=== PATIENT | female | born 1955 | race Caucasian/White ===

== ENCOUNTER → 2019-09-23 09:14 | Outpatient (CLI) | payer MEDICARE, SELFPAY ==
[2019-09-23 10:39] LABS: Add Manual Diff / Slide Review NO; Basophils Absolute Auto 100 /uL (0-100); Basophils Percent Auto 1.4 % (0-2); Eosinophils Absolute Auto 300 /uL (0-450); Eosinophils Percent Auto 6.8 % (2-4); Hematocrit 40.4 % (36-46); Hemoglobin 13.9 g/dL (12.0-16.0); Lymphocytes Absolute Auto 2100 /uL (1100-4500); Lymphocytes Percent Auto 43.5 % (25-40); Mean Corpuscular HGB Conc 34.5 % (30-36); Mean Corpuscular Hemoglobin 32.5 PG (26-34); Mean Corpuscular Volume 94.2 fL (80-100); Monocytes Absolute Auto 500 /uL (0-900); Monocytes Percent Auto 9.9 % (3-14); Neutrophils Absolute Auto 1900 /uL (1500-7000); Neutrophils Percent Auto 38.4 % (50-75); Platelet Count 263 X10^3/uL (150-400); Red Blood Cell Count 4.29 X10^6/uL (4.0-5.2); Red Cell Distribution Width 13.1 % (11.6-14.8); White Blood Cell Count 4.9 X10^3/uL (4.5-11.0)
[2019-09-23 11:13] LABS: BUN Creatinine Ratio 24.3 (6-22); Blood Urea Nitrogen 17 mg/dL (7-17); Carbon Dioxide 30 mmol/L (22-32); Chloride 106 mmol/L (98-107); Cholesterol 265 mg/dL (140-199); Estimated Glomerular Filt Rate > 60.0 mL/min (>60); Glucose 106 mg/dL (80-110); HDL Cholesterol 80 mg/dL (40-60); HEMOLYSIS < 15 (0-50); LDL Cholesterol Calculated 162 mg/dL (<100); Potassium 5.3 mmol/L (3.4-5.1); Sodium 141 mmol/L (137-145); Triglycerides 113 mg/dL (35-150)
== END ==
PROVIDERS: Family Provider Family Medicine; PCP Family Medicine; Visit Provider Internal Medicine Cardiovascular Disease
DX: I10 Essential (primary) hypertension (principal)
CPT/HCPCS: 36415; 80048; 80061; 85025

== ENCOUNTER → 2019-10-01 08:54 | Outpatient (CLI) | payer MEDICARE, SELFPAY ==
--- NOTE | 2019-10-01 | DI.ECHO.S_ITS ---
[facility] [facility]+ [facility] +---------+ : : [address] : : : : [id number] : : : : Phone: [phone] Echocardiogram Report + + :Name: MARI TORRES Study Date: 10/01/2019 Height: 60 in : :[facility] Weight: 130 lb : : Gender: Female BSA: 1.6 m2 : :: 1955 Age: 64 yrs BP: 142/74 mmHg: :Reason For Study: Pericardial Effusion : : Performed By: [facility] Staff : :Referring: JUANITA EUCEDA : + + Interpretation Summary 1) Normal left ventricular thickness, size, wall motion, and systolic function (EF 60-65%). 2) Normal right ventricular size and function. 3) No significant valvular abnormalities. 4) There is a trivial pericardial effusion noted. 5) No prior Echo available for comparison. Procedure: A two-dimensional transthoracic echocardiogram with color flow and Doppler was performed. The study quality was technically adequate. There is no prior echocardiogram noted for this patient. The patient was in normal sinus rhythm during the exam. Left Ventricle: The left ventricle is normal in size. There is normal left ventricular wall thickness. Left ventricular systolic function is normal. The ejection fraction is estimated to be 60-65%. Left ventricular wall motion is normal. Right Ventricle: The right ventricle is normal in size and function. Atria: The left atrial size is normal. Right atrial size is normal. The interatrial septum is intact with no evidence for an atrial septal defect. Mitral Valve: The mitral valve is normal in structure and function. There is trace mitral regurgitation. Aortic Valve: The aortic valve is trileaflet. The aortic valve opens well. There is no aortic valve stenosis. No aortic regurgitation is present. Tricuspid Valve: The tricuspid valve is normal in structure and function. There is trace tricuspid regurgitation. Pulmonary artery pressures cannot be estimated because of the lack of a measurable TR jet velocity. Pulmonic Valve: The pulmonic valve is normal in structure and function. There is trace pulmonic regurgitation. Great Vessels: The aortic root is normal size. The dimensions of the ascending aorta are normal. The pulmonary artery is normal size. The IVC is of normal diameter and collapses greater than 50% with a sniff. This suggests a low right atrial pressure of 3 mm Hg. Pericardium/ Pleura There is a trivial pericardial effusion noted. There is no pleural effusion. MMode/2D Measurements & Calculations LVIDd: 3.6 cm LVOT diam: 1.8 cm LVIDs: 2.3 cm Ao root diam: 3.2 cm FS: 35.6 % Aortic Jxn: 2.6 cm EPSS: 0.58 cm IVSd: 1.0 cm LVPWd: 0.92 cm LV clayton. diameter/BSA (cm/m^2): 2.3 LV sys. diameter/BSA (cm/m^2): 1.5 LA A2 area: 14.9 cm2 RA long axis: 2.9 cm LA A4 area: 14.5 cm2 RA area: 5.8 cm2 LA length (vol): 4.9 cm RA vol: 9.9 ml LA vol: 37.5 ml RA : 6.3 ml/m2 LA vol index: 24.1 ml/m2 TAPSE: 2.0 cm Doppler Measurements & Calculations Ao V2 max: 118.4 cm/sec LVOT Max Willian: 96.1 cm/sec Ao V2 mean: 83.9 cm/sec LV V1 max P.7 mmHg Ao max P.6 mmHg LV V1 VTI: 24.6 cm Ao mean P.2 mmHg ROSANA(I,D): 2.6 cm2 Ao V2 VTI: 25.1 cm ROSANA(V,D): 2.1 cm2 sev ratio: 0.98 ROSANA indexed to BSA (cm^2/m^2): 1.7 MV E max willian: 55.3 cm/sec PA V2 max: 75.7 cm/sec MV A max willian: 77.3 cm/sec PA V2 mean: 49.4 cm/sec MV E/A: 0.72 PA mean P.1 mmHg Med Peak E' Willian: 4.1 cm/sec PA Accel Time: 0.10 sec E/E' med: 13.4 Lat Peak E' Willian: 4.9 cm/sec E/E' lat: 11.3 E/e' average: 12.3 MV dec time: 0.21 sec SV(LVOT): 64.6 ml Reading Physician:11:23 AM
== END ==
PROVIDERS: PCP Family Medicine; Visit Provider Internal Medicine Cardiovascular Disease
DX: I31.3 Pericardial effusion (noninflammatory) (principal)
CPT/HCPCS: 93306

== ENCOUNTER → 2021-10-31 10:20 | Outpatient (CLI) | payer MEDICARE, SELFPAY ==
--- NOTE | 2021-10-31 10:23 | DI.MG.S_ITS ---
BILATERAL DIGITAL SCREENING MAMMOGRAM 3D/2D WITH CAD: 10/31/2021 CLINICAL: Routine screening. Family history of breast cancer. Comparison is made to exam dated: 09/20/2012 mammogram - [facility]. There are scattered fibroglandular elements in both breasts. Current study was also evaluated with a Computer Aided Detection (CAD) system. There are benign post operative findings in the right breast. No significant masses, calcifications, or other findings are seen in either breast. There has been no significant interval change. IMPRESSION: BENIGN There is no mammographic evidence of malignancy. A 1 year screening mammogram is recommended. This exam was interpreted at Station ID: [id number]. NOTE: For mammograms, a report in lay terms will be sent to the patient. Approximately 15% of breast malignancies will not be visualized mammographically. In the management of a palpable breast mass, a negative mammogram must not discourage biopsy of a clinically suspicious lesion. Electronically Signed By: Tuyet ordaz/bertha:10/31/2021 11:01:47 letter sent: Normal Exam ACR BI-RADS Category 2: Benign Finding(s) 3342F
== END ==
PROVIDERS: Family Provider Family Medicine; PCP Family Medicine; Referring Provider Family Medicine; Visit Provider Family Medicine
DX: Z12.31 Encounter for screening mammogram for malignant neoplasm of breast (principal); Z80.3 Family history of malignant neoplasm of breast
CPT/HCPCS: 77063; 77067

== ENCOUNTER → 2022-06-13 14:12 | Outpatient (CLI) | payer MEDICARE, SELFPAY | PROVIDERS: Family Provider Family Medicine; PCP Family Medicine; Referring Provider Family Medicine; Visit Provider Family Medicine | DX: Z13.820 Encounter for screening for osteoporosis (principal); Z78.0 Asymptomatic menopausal state; M85.851 Other specified disorders of bone density and structure, right thigh; M85.852 Other specified disorders of bone density and structure, left thigh | CPT/HCPCS: 77080 ==

== ENCOUNTER → 2022-08-18 08:34 | Outpatient (CLI) | payer MEDICARE, SELFPAY ==
--- NOTE | 2022-08-18 08:36 | DI.CT.S_ITS ---
PROCEDURE: CT LUNG LOW DOSE SCREENING INDICATIONS: 60 pack year smoking hx TECHNIQUE: Noncontrast 2.0-2.5 mm thick sections acquired from the pulmonary apices to the posterior costophrenic angles. 7 mm thick axial MIP, and 5 mm coronal and sagittal reformats were then acquired. A low radiation dose technique was utilized. COMPARISON: None. FINDINGS: Image quality: Diagnostic, given the low radiation dose technique. Lungs and pleura: Bilateral posterior subpleural lung nodules present, one tethering the left major fissure in the superior segment left lower lobe, part solid in size measures 7 mm, 3/96. In the posterior right upper lobe 3/94, are round solid nodule measures 5 mm. Right lateral upper lobe 2 mm (3/112), right mid lung juxta fissural 5 mm (3/139), and left lower lobe subpleural linear, 4 mm (3/230), nodules are all stable. No new nodules, consolidations, masses, or pleural effusions. Findings are on a background of mild emphysematous change. Mediastinum: Heart size is normal. No pericardial effusion. No mediastinal adenopathy by size criteria. Thoracic aorta and central pulmonary arteries are normal in size. Esophagus is normal in caliber. Tiny hiatal hernia. Bones and chest wall: No suspicious bony lesions. No visible displaced rib fractures. No vertebral body compression fractures. Moderate S-shaped thoracolumbar scoliosis. No axillary or supraclavicular adenopathy by size criteria. Thyroid gland is normal size and the left lobe contains a few coarse calcifications.. Abdomen: Visualized upper abdomen solid organs and bowel loops appear normal in the absence of contrast and given low-dose technique. IMPRESSION: 1. Stable bilateral lung nodules measuring 7 mm and smaller, most pleural-based or juxta fissural, likely lymph nodes. Continued follow-up is recommended. 2. Lung rads category two, benign given no interval growth. Recommended annual low-dose screening chest CT. 3. No visible fractures given patient's history recent trauma. Dictated by: Tuyet Kim M.D. on 08/21/2022 at 12:42 Approved by: Tuyet Kim M.D. on 08/21/2022 at 12:54
[2022-08-18 09:11] LABS: Add Manual Diff / Slide Review NO; Basophils Absolute Auto 100 /uL (0-100); Basophils Percent Auto 1.1 % (0-2); Eosinophils Absolute Auto 400 /uL (0-450); Eosinophils Percent Auto 5.6 % (2-4); Hematocrit 39.8 % (36-46); Hemoglobin 13.4 g/dL (12.0-16.0); Lymphocytes Absolute Auto 3300 /uL (1100-4500); Lymphocytes Percent Auto 49.4 % (25-40); Mean Corpuscular HGB Conc 33.6 % (30-36); Mean Corpuscular Hemoglobin 31.6 PG (26-34); Monocytes Absolute Auto 600 /uL (0-900); Monocytes Percent Auto 8.6 % (3-14); Neutrophils Absolute Auto 2300 /uL (1500-7000); Neutrophils Percent Auto 35.3 % (50-75); Platelet Count 268 X10^3/uL (150-400); Red Blood Cell Count 4.24 X10^6/uL (4.0-5.2); Red Cell Distribution Width 12.9 % (11.6-14.8); White Blood Cell Count 6.7 X10^3/uL (4.5-11.0)
[2022-08-18 09:25] LABS: Alanine Aminotransferase 24 IU/L (<35); Albumin 4.1 g/dL (3.5-5.0); Albumin Globulin Ratio 1.2 (1.0-2.8); Alkaline Phosphatase 86 U/L (38-126); Aspartate Aminotransferase 24 IU/L (14-36); BUN Creatinine Ratio 23.1 (6-22); Bilirubin Total 0.6 mg/dL (0.2-1.3); Blood Urea Nitrogen 18 mg/dL (7-17); Calcium 9.2 mg/dL (8.4-10.2); Carbon Dioxide 29 mmol/L (22-32); Chloride 102 mmol/L (98-107); Cholesterol 244 mg/dL (140-199); Estimated Glomerular Filt Rate > 60 mL/min (>60); Globulin 3.4 g/dL (1.7-4.1); Glucose 99 mg/dL (80-110); HDL Cholesterol 85 mg/dL (40-60); HEMOLYSIS < 15 (0-50); LDL Cholesterol Calculated 138 mg/dL (<100); Sodium 140 mmol/L (137-145); Total Protein 7.5 g/dL (6.3-8.2); Triglycerides 106 mg/dL (35-150)
[2022-08-18 10:17] LABS: Vitamin D 25 Hydroxy (D3) 58.9 ng/mL (30.0-100.0)
== END ==
PROVIDERS: Family Provider Family Medicine; PCP Family Medicine; Referring Provider Family Medicine; Visit Provider Family Medicine
DX: R91.8 Other nonspecific abnormal finding of lung field (principal); E78.5 Hyperlipidemia, unspecified; M81.0 Age-related osteoporosis without current pathological fracture; I10 Essential (primary) hypertension; F17.210 Nicotine dependence, cigarettes, uncomplicated
CPT/HCPCS: 36415; 71250; 80053; 80061; 82306; 85025

== ENCOUNTER → 2022-09-27 15:28 | Outpatient (CLI) | payer MEDICARE, SELFPAY ==
--- NOTE | 2022-09-27 15:30 | DI.US.S_ITS ---
PROCEDURE: US THYROID INDICATIONS: NODULES TECHNIQUE: Real-time scanning was performed of the thyroid gland, with image documentation. COMPARISON: None. FINDINGS: Right: Thyroid lobe measures 4.7 x 1.5 x 1.6 cm, and is homogeneous in echotexture. Left: Thyroid lobe measures 5.1 x 1.5 x 1.5 cm, and is homogenous in echotexture. Isthmus: 2 mm thick. Five nodules are visualized. Per TI-RADS guidance, a maximum of 4 are described as follows. Nodule number: 1 Location: Left lobe superior Size: 1.6 x 0.6 x 1.1 cm. Composition: Predominantly solid Echogenicity: Hypoechoic Shape: wider than tall. Margins: Smooth Echogenic foci: Macrocalcification Total points: 5 ACR TI-RADS category: 4 Nodule number: 2 Location: Left lobe inferior Size: 0.9 x 0.4 x 0.8 cm. Composition: Solid Echogenicity: Hypoechoic Shape: wider than tall. Margins: Ill-defined Echogenic foci: Macrocalcification Total points: 5 ACR TI-RADS category: 4 Nodule number: 3 Location: Left lobe medial/mid Size: 1.0 x 0.3 x 0.8 cm. Composition: Solid Echogenicity: Isoechoic Shape: wider than tall. Margins: Ill-defined Echogenic foci: None Total points: 3 ACR TI-RADS category: 3 Nodule number: 4 Location: Right lobe mid Size: 1.0 x 0.6 x 0.8 cm. Composition: Predominantly solid Echogenicity: Hypoechoic Shape: wider than tall. Margins: Smooth Echogenic foci: punctate Total points: 7 ACR TI-RADS category: 5 IMPRESSION: Multiple thyroid nodules are present. Nodules #1 and #4 meet TI-RADS criteria for FNA recommendation. Other nodules do not meet TI-RADS criteria for FNA recommendation and follow-up is recommended as below. ACR TI-RADS definitions and recommendations: TI-RADS 1 (benign): 0 points. FNA not needed. TI-RADS 2 (not suspicious): 2 points. FNA not needed. TI-RADS 3 (mildly suspicious): 3 points. * FNA if 2.5 cm or larger, follow up if 1.5 cm or larger (at 1, 3, and 5 years). TI-RADS 4 (moderately suspicious): 4-6 points. * FNA if 1.5 cm or larger, follow up if 1 cm or larger (at 1, 2, 3, and 5 years). TI-RADS 5 (highly suspicious): 7 points or more. * FNA if 1 cm or larger, follow up if 0.5 cm or larger (every year for 5 years). Dictated by: John Parikh M.D. on 09/27/2022 at 16:57 Approved by: John Parikh M.D. on 09/27/2022 at 17:11
== END ==
PROVIDERS: Family Provider Family Medicine; PCP Family Medicine; Referring Provider Family Medicine; Visit Provider Family Medicine
DX: E04.2 Nontoxic multinodular goiter (principal)
CPT/HCPCS: 76536

== ENCOUNTER → 2022-10-31 09:52 | Outpatient (CLI) | payer MEDICARE, SELFPAY ==
--- NOTE | 2022-10-31 | DI.MG.S_ITS ---
BILATERAL DIGITAL SCREENING MAMMOGRAM 3D/2D WITH CAD: 10/31/2022 CLINICAL: Routine screening. Family history of breast cancer. Comparison is made to exams dated: 10/31/2021 mammogram - [facility], 10/28/2020 mammogram, and 10/28/2019 mammogram - [facility]. Both breasts are heterogeneously dense, which may obscure small masses (category c / 51-75% glandular tissue). Current study was also evaluated with a Computer Aided Detection (CAD) system. There are benign post operative findings in the right breast. No significant masses, calcifications, or other findings are seen in either breast. There has been no significant interval change. IMPRESSION: BENIGN There is no mammographic evidence of malignancy. A 1 year screening mammogram is recommended. Based on Tyrer-Cuzick model (a risk assessment model), the patient's lifetime risk is 31.4% and her 10 year risk is 18.4%. If a patient has an elevated risk, a more comprehensive evaluation should be considered and/or a referral to a genetic counselor. The [employer], [employer], and NCCN Guidelines advise the consideration of Breast MRI as an adjunct to screening mammography in patients whose Lifetime risk to develop breast cancer is 20% or higher. This exam was interpreted at Station ID: [id number]. NOTE: For mammograms, a report in lay terms will be sent to the patient. Approximately 15% of breast malignancies will not be visualized mammographically. In the management of a palpable breast mass, a negative mammogram must not discourage biopsy of a clinically suspicious lesion. Electronically Signed By: David weber/bertha:11/01/2022 10:16:07 letter sent: Normal Exam ACR BI-RADS Category 2: Benign Finding(s) 3342F
== END ==
PROVIDERS: Family Provider Family Medicine; PCP Family Medicine; Referring Provider Family Medicine; Visit Provider Family Medicine
DX: Z12.31 Encounter for screening mammogram for malignant neoplasm of breast (principal); Z80.3 Family history of malignant neoplasm of breast
CPT/HCPCS: 77063; 77067

== ENCOUNTER → 2023-01-08 09:12 | Outpatient (CLI) | payer MEDICARE, SELFPAY ==
[2023-01-08 10:35] LABS: Cholesterol 242 mg/dL (140-199); HDL Cholesterol 97 mg/dL (40-60); LDL Cholesterol Calculated 128 mg/dL (<100); Triglycerides 85 mg/dL (35-150)
== END ==
PROVIDERS: Family Provider Family Medicine; PCP Family Medicine; Referring Provider Family Medicine; Visit Provider Family Medicine
DX: E78.5 Hyperlipidemia, unspecified (principal)
CPT/HCPCS: 36415; 80061

== ENCOUNTER → 2023-01-09 13:47 | Outpatient (CLI) | payer MEDICARE, SELFPAY ==
--- NOTE | 2023-01-09 | PATH_ITS ---
Note [facility] Accession Number: [id number] TESTS RESULT FLAG UNITS REF RANGE LAB Clinician Provided Cytology Information No. of containers..01 Other (Miscellaneous) No. of containers..08 Previously Prepared Cytology Slide Source: LEFT THYROID NODULE SUPERIOR DIAGNOSIS: LEFT THYROID NODULE SUPERIOR INCONCLUSIVE. BETHESDA CATEGORY III. ATYPIA OF UNDETERMINED SIGNIFICANCE. MOLECULAR STUDIES PENDING; RESULTS WILL BE REPORTED SEPARATELY. Pathologist ICD10: R89.6 Signed out by: Janis Perea MD, Pathologist NPI- [id number] Performed by: Abhijeet Simmons, Dancing Master ([facility]) Gross description: 30 CC, PINK, CLEAR RECIEVED: IN CYTOLYT WITH 4 ALCOHOL FIXED AND 4 QUICK STAINED SLIDES ALSO 1 RNA VIAL WAS RECEIVED.VO /VDU 01/10/2023 0930 Local FLAG LEGEND: L-Low Normal,H-High Normal,LL-Alert Low,HH-Alert High <-Panic Low,>-Panic High,A-Abnormal,AA-Critical Abnormal Performed at: 01 =Z [facility] [address], [place] [address] Phillip Reynolds MD, Performed at: 01 [facility] [address], [place], [place] [id number] MD Phillip Reynolds MD Phone: [phone]
--- NOTE | 2023-01-09 | PATH_ITS ---
Note [facility] Accession Number: [id number] TESTS RESULT FLAG UNITS REF RANGE LAB Clinician Provided Cytology Information No. of containers..01 Other (Miscellaneous) No. of containers..02 Previously Prepared Cytology Slide Source: RIGHT THYROID NODULE MID DIAGNOSIS: RIGHT THYROID NODULE MID INCONCLUSIVE. BETHESDA CATEGORY III. FOLLICULAR LESION OF UNDETERMINED SIGNIFICANCE. SPECIMEN CONSISTS OF ABUNDANT FOLLICULAR CELLS WITH HURTHLE CELL FEATURES AND COLLOID. THE DIFFERENTIAL DIAGNOSIS INCLUDES CELLULAR ADENOMATOID NODULE AND FOLLICULAR NEOPLASM. MOLECULAR STUDIES ARE PENDING; RESULTS WILL BE REPORTED SEPARATELY. Pathologist ICD10: 01 R89.6 Signed out by: Janis Perea MD, Pathologist NPI- [id number] Performed by: Juan Flood, Sports Manager ([facility]) Gross description: 30 CC, COLORLESS, CLEAR RECIEVED: IN CYTOLYT WITH 6 ALCOHOL FIXED AND 6 QUICK STAINED SLIDES ALSO 1 RNA VIAL WAS RECEIVED.VO /VDU 01/10/2023 0928 Local FLAG LEGEND: L-Low Normal,H-High Normal,LL-Alert Low,HH-Alert High <-Panic Low,>-Panic High,A-Abnormal,AA-Critical Abnormal Performed at: 01 =Z [facility] [address] [place] [address], [place] [address] Phillip Reynolds MD, Specimen Comment: A courtesy copy of this report has been sent to [facility] Specimen Comment: [id number] Performed at: 01 [facility] [address], [place], [place] [id number] MD Phillip Reynolds MD Phone: [phone]
--- NOTE | 2023-01-09 13:48 | DI.US.S_ITS ---
PROCEDURE: US FINE NEEDLE ASPIRATION INDICATIONS: BILATERAL THYROID NODULES TECHNIQUE: The indications, alternatives, benefits, risks, and complications of the procedure were explained to the patient. Written informed consent was obtained and placed in the chart. The thyroid region was examined sonographically and a site was chosen for ultrasound guided percutaneous sampling. The skin was prepared and draped in the usual fashion, and anesthetized with 1% lidocaine infiltrated from the skin down to the thyroid gland. Multiple passes were then performed, with contents emptied into an appropriate pathology specimen container. A bandage was applied to the area of access at completion of the study. COMPARISON: [facility], US, US THYROID, 09/27/2022, 15:36. FINDINGS: Location(s) of lesion(s) sampled: Right lobe mid, left lobe superior Roberts: 25 gauge hypodermic needles. Number of passes: 6 passes right lobe mid nodule, 7 passes left lobe superior nodule Medications: 1% lidocaine for local anaesthesia. Complications: None. IMPRESSION: Successful ultrasound-guided thyroid nodule fine needle aspiration, with cytology results pending. Please see chart below for management recommendations based on cytology results. [facility] ReportingRecommendationsNon-diagnostic* Repeat US-guided FNA, with on-site cytology evaluation if possible. * Repeated non-diagnostic nodules without high suspicion US features: close observation vs surgical consult. * Consider surgery if nodule has high suspicion US features, grows >20% in 2 dimensions on followup, or patient has clinical risk factors for malignancy. Benign* If nodule has high suspicion US features: repeat US and FNA within 12 months. * If nodule has low to intermediate suspicion US features: repeat US at 12-24 months. If nodule grows (20% increase in at least 2 dimensions, with minimal increase of 2 mm or >50% change in volume), or development of new suspicious US features, then repeat FNA or continue followup. * If nodule has very low suspicion US features: followup US at >24 months. Atypia of undetermined significance, follicular lesion of undetermined significanceRepeat FNA, molecular testing, followup US, or surgical consult.Follicular neoplasm, suspicious for follicular neoplasmSurgical consult; also consider molecular testing. Suspicious for malignancySurgical consult.MalignantSurgical consult. Dictated by: John Parikh M.D. on 01/09/2023 at 17:21 Approved by: John Parikh M.D. on 01/09/2023 at 17:21
== END ==
PROVIDERS: Family Provider Family Medicine; PCP Family Medicine; Referring Provider Otolaryngology Facial Plastic Surgery; Visit Provider Otolaryngology Facial Plastic Surgery
DX: E04.2 Nontoxic multinodular goiter (principal)
CPT/HCPCS: 10005; 10006

== ENCOUNTER → 2023-01-16 09:29 | Outpatient (CLI) | payer MEDICARE, SELFPAY ==
[2023-01-16 11:07] LABS: TSH w/ Reflex to FT4 0.98 uIU/mL (0.47-4.68)
== END ==
PROVIDERS: Family Provider Family Medicine; PCP Family Medicine; Referring Provider Family Medicine; Visit Provider Family Medicine
DX: E04.1 Nontoxic single thyroid nodule (principal)
CPT/HCPCS: 36415; 84443

== ENCOUNTER → 2023-06-04 | Outpatient (CLI) | payer MEDICARE, SELFPAY ==
--- NOTE | 2023-06-04 10:00 | DI.RAD.S_ITS ---
Bone Density Report Name: MARI TORRES Age: 68 Sex: Female Ethnicity: White Date of : 1955 Indication: osteopenia; Referring Provider: ALMONT KUNZ Study: Bone densitometry was performed. Exam Date: June 04, 2023 Accession number: [id number] Bone Density: Region BMD T-score Z-score Classification AP Spine(L1, L2, L4) 0.965 -0.6 1.4 Normal Femoral Neck (Left) 0.635 -1.9 -0.2 Osteopenia Total Hip (Left) 0.753 -1.5 -0.1 Osteopenia Femoral Neck (Right) 0.605 -2.2 -0.5 Osteopenia Total Hip (Right) 0.788 -1.3 0.2 Osteopenia Total Hip Mean 0.771 -1.4 0.1 Osteopenia World Health Organization criteria for BMD impression classify patients as: Normal (T-score at or above -1.0), Osteopenia (T-score between -1.0 and -2.5), or Osteoporosis (T-score at or below -2.5). 10-year Fracture Risk(1): Major Osteoporotic Fracture 12% Hip Fracture 2.5% Reported Risk Factors: [place] (), Neck BMD=0.605, BMI=25.4 (1) FRAX(R) Version 3.08. Fracture probability calculated for an untreated patient. Fracture probability may be lower if the patient has received treatment. Previous Exams: -- Region Exam Age BMD T-score BMD Change BMD Change Date g/cm2 vs Baseline vs Previous -- AP Spine (L1-L2,L4) 06/04/2023 68 0.965 -0.6 0.028 (3.0%)* 0.028 (3.0%)* 06/13/2022 67 0.937 -0.9 Total Hip(Left) 06/04/2023 68 0.753 -1.5 0.006 (0.8%) 0.006 (0.8%) 06/13/2022 67 0.747 -1.6 Total Hip(Right) 06/04/2023 68 0.788 -1.3 0.029 (3.8%)* 0.029 (3.8%)* 06/13/2022 67 0.759 -1.5 -- *Denotes significance at 95% confidence level, LSC for AP Spine = 0.022 g/cm2, LSC for Total Hip = 0.027 g/cm2 Impression: The patient has low bone mass, based on the Right Femoral Neck T-score. The patient has an estimated ten-year risk of hip fracture of 2.5% and an estimated ten-year risk of major fracture of 12%, based on the WHO FRAX algorithm. No significant bone loss was observed. Discussion: BONE DENSITY IS LOW AT ONE OR MORE SKELETAL SITES. This patient's lowest T-score is low at one or more skeletal sites. It meets the World Health Organization's (WHO) criteria for low bone mass (T-score between -1.0 and -2.5). The patient's 10-year risk of fracture as calculated by FRAX is less than the threshold where pharmacological therapy is recommended by the National Osteoporosis Foundation (NOF). However, all treatment decisions require clinical judgment and consideration of individual patient factors, including patient preferences, comorbidities, previous drug use, risk factors not captured in the FRAX model (e.g., frailty, falls, vitamin D deficiency, increased bone turnover, interval significant decline in bone density) and possible under or overestimation of fracture risk by FRAX. The patient should follow a healthful lifestyle (good nutrition with adequate calcium and vitamin D, and appropriate weight-bearing exercise). Follow-Up: Consider repeating this study in 2 to 3 years to reassess this patient's status, or sooner if there is some new clinical indication. Reported by: DWIGHT VIGIL M.D. on 06/04/2023 10:18:00 AM.
== END ==
PROVIDERS: Family Provider Family Medicine; PCP Family Medicine; Referring Provider Family Medicine; Visit Provider Family Medicine
DX: M85.851 Other specified disorders of bone density and structure, right thigh (principal); Z78.0 Asymptomatic menopausal state
CPT/HCPCS: 77080

== ENCOUNTER → 2023-08-22 09:30 | Outpatient (CLI) | payer MEDICARE, SELFPAY ==
--- NOTE | 2023-08-22 09:33 | DI.CT.S_ITS ---
PROCEDURE: CT LUNG LOW DOSE SCREENING INDICATIONS: nodules TECHNIQUE: Noncontrast 2.0-2.5 mm thick sections acquired from the pulmonary apices to the posterior costophrenic angles. 7 mm thick axial MIP, and 5 mm coronal and sagittal reformats were then acquired. A low radiation dose technique was utilized. COMPARISON: [facility], CT, CT LUNG LOW DOSE SCREENING, 08/18/2022, 8:41. FINDINGS: Image quality: Diagnostic, given the low radiation dose technique. Lungs and pleura: Stable intrapulmonary lymph node within the right fissure (series 3, image 116). Stable pulmonary micro nodules. Mediastinum: Heart size is normal. No pericardial effusion. No mediastinal adenopathy by size criteria. Thoracic aorta and central pulmonary arteries are normal in size. Esophagus is normal in caliber. Mild hiatal hernia. Minimal coronary calcifications. Bones and chest wall: No suspicious bony lesions. No vertebral body compression fractures. No axillary or supraclavicular adenopathy by size criteria. Thyroid gland is unremarkable. Abdomen: Visualized upper abdomen solid organs and bowel loops appear normal in the absence of contrast. IMPRESSION: No interval change. LUNG-RADS 2; continued annual follow-up if eligible. Dictated by: Alpesh Ross M.D. on 08/22/2023 at 10:05 Approved by: Alpesh Ross M.D. on 08/22/2023 at 10:10
== END ==
PROVIDERS: Family Provider Family Medicine; PCP Family Medicine; Referring Provider Family Medicine; Visit Provider Family Medicine
DX: F17.210 Nicotine dependence, cigarettes, uncomplicated (principal); R91.1 Solitary pulmonary nodule
CPT/HCPCS: 71271

== ENCOUNTER → 2023-09-06 11:06 | Outpatient (CLI) | payer MEDICARE, SELFPAY ==
--- NOTE | 2023-09-06 | DI.US.S_ITS ---
PROCEDURE: US THYROID INDICATIONS: GOITER TECHNIQUE: Real-time scanning was performed of the thyroid gland, with image documentation. COMPARISON: [facility], US, US THYROID, 09/27/2022, 15:36. FINDINGS: Right: Thyroid lobe measures 4.4 x 1.9 x 1.6 cm, and is homogeneous in echotexture. Left: Thyroid lobe measures 5.2 x 1.8 x 1.6 cm, and is homogenous in echotexture. Isthmus: 2 mm thick. Nodule number: 1, previous FNA Location: Left superior Size: 1.6 x 0.7 x 1.0 by cm. Composition: Solid Echogenicity: Hypoechoic Shape: wider than tall. Margins: Ill-defined Echogenic foci: Macro calcification Total points: 5 ACR TI-RADS category: 4 Nodule number: 2 Location: Left inferior Size: 1.0 x 0.5 x 0.9 cm. Composition: Solid Echogenicity: Hypoechoic Shape: wider than tall. Margins: Ill-defined Echogenic foci: Macrocalcifications Total points: 5 ACR TI-RADS category: 4 Nodule number: 3 Location: Left medial Size: 1.4 by 0.4 x 0.8 cm. Composition: Solid Echogenicity: Isoechoic Shape: wider than tall. Margins: Ill-defined Echogenic foci: None Total points: 3 ACR TI-RADS category: 3 Nodule number: 4 Location: Right mid Size: 1.1 x 0.6 x 0.0 cm. Composition: Solid Echogenicity: Hypoechoic Shape: wider than tall. Margins: Ill-defined Echogenic foci: Punctate Total points: 7 ACR TI-RADS category: 5 IMPRESSION: Relatively stable multiple thyroid nodules. Nodule 1 has been previously FNA. Consider FNA nodule 4 in the right mid thyroid if not done previously. ACR TI-RADS definitions and recommendations: TI-RADS 1 (benign): 0 points. FNA not needed. TI-RADS 2 (not suspicious): 2 points. FNA not needed. TI-RADS 3 (mildly suspicious): 3 points. * FNA if 2.5 cm or larger, follow up if 1.5 cm or larger (at 1, 3, and 5 years). TI-RADS 4 (moderately suspicious): 4-6 points. * FNA if 1.5 cm or larger, follow up if 1 cm or larger (at 1, 2, 3, and 5 years). TI-RADS 5 (highly suspicious): 7 points or more. * FNA if 1 cm or larger, follow up if 0.5 cm or larger (every year for 5 years). Approved by: Danny Awad M.D. on 09/06/2023 at 18:12
== END ==
PROVIDERS: Family Provider Family Medicine; PCP Family Medicine; Referring Provider Otolaryngology Facial Plastic Surgery; Visit Provider Otolaryngology Facial Plastic Surgery
DX: E04.2 Nontoxic multinodular goiter (principal); J02.9 Acute pharyngitis, unspecified
CPT/HCPCS: 76536

== ENCOUNTER → 2023-10-31 09:52 | Outpatient (CLI) | payer MEDICARE, SELFPAY ==
--- NOTE | 2023-10-31 09:54 | DI.MG.S_ITS ---
BILATERAL DIGITAL SCREENING MAMMOGRAM 3D/2D WITH CAD: 10/31/2023 CLINICAL: Routine screening. Family history of breast cancer. Comparison is made to exams dated: 10/31/2022 mammogram, 10/31/2021 mammogram - [facility], and 10/28/2020 mammogram - [facility]. There are scattered areas of fibroglandular density in both breasts (category b / 25%-50% glandular tissue). Current study was also evaluated with a Computer Aided Detection (CAD) system. There are benign post operative findings in the right breast. No significant masses, calcifications, or other findings are seen in either breast. There has been no significant interval change. IMPRESSION: BENIGN There is no mammographic evidence of malignancy. A 1 year screening mammogram is recommended. Based on Tyrer-Cuzick model (a risk assessment model), the patient's lifetime risk is 20.9% and her 10 year risk is 12.6%. If a patient has an elevated risk, a more comprehensive evaluation should be considered and/or a referral to a genetic counselor. The [employer], [employer], and NCCN Guidelines advise the consideration of Breast MRI as an adjunct to screening mammography in patients whose Lifetime risk to develop breast cancer is 20% or higher. This exam was interpreted at Station ID: [id number]. NOTE: For mammograms, a report in lay terms will be sent to the patient. Approximately 15% of breast malignancies will not be visualized mammographically. In the management of a palpable breast mass, a negative mammogram must not discourage biopsy of a clinically suspicious lesion. Electronically Signed By: Norma roach/bertha:10/31/2023 12:04:19 letter sent: Normal Exam ACR BI-RADS Category 2: Benign Finding(s) 3342F
== END ==
PROVIDERS: Family Provider Family Medicine; PCP Family Medicine; Referring Provider Family Medicine; Visit Provider Family Medicine
DX: Z12.31 Encounter for screening mammogram for malignant neoplasm of breast (principal); Z80.3 Family history of malignant neoplasm of breast
CPT/HCPCS: 77063; 77067

== ENCOUNTER → 2024-03-08 09:54 | Outpatient (CLI) | payer MEDICARE, SELFPAY ==
[2024-03-08 10:57] LABS: Add Manual Diff / Slide Review NO; Basophils Absolute Auto 100 /uL (0-100); Basophils Percent Auto 1.3 % (0-2); Eosinophils Absolute Auto 300 /uL (0-450); Eosinophils Percent Auto 4.7 % (2-4); Hematocrit 39.1 % (36-46); Hemoglobin 13.2 g/dL (12.0-16.0); Lymphocytes Absolute Auto 2500 /uL (1100-4500); Lymphocytes Percent Auto 44.5 % (25-40); Mean Corpuscular HGB Conc 33.7 % (30-36); Mean Corpuscular Hemoglobin 32.3 PG (26-34); Mean Corpuscular Volume 95.9 fL (80-100); Monocytes Absolute Auto 600 /uL (0-900); Neutrophils Absolute Auto 2200 /uL (1500-7000); Neutrophils Percent Auto 39.5 % (50-75); Platelet Count 263 X10^3/uL (150-400); Red Blood Cell Count 4.08 X10^6/uL (4.0-5.2); Red Cell Distribution Width 13.2 % (11.6-14.8); White Blood Cell Count 5.6 X10^3/uL (4.5-11.0)
[2024-03-08 12:34] LABS: Alanine Aminotransferase 21 IU/L (<35); Albumin 4.2 g/dL (3.5-5.0); Albumin Globulin Ratio 1.5 (1.0-2.8); Alkaline Phosphatase 59 U/L (38-126); Aspartate Aminotransferase 28 IU/L (14-36); BUN Creatinine Ratio 22.1 (6-22); Bilirubin Total 0.7 mg/dL (0.2-1.3); Blood Urea Nitrogen 15 mg/dL (7-17); Calcium 9.9 mg/dL (8.4-10.2); Carbon Dioxide 30 mmol/L (22-32); Chloride 108 mmol/L (98-107); Cholesterol 239 mg/dL (140-199); Estimated Glomerular Filt Rate > 60 mL/min (>60); Globulin 2.8 g/dL (1.7-4.1); Glucose 97 mg/dL (80-110); HDL Cholesterol 106 mg/dL (40-60); HEMOLYSIS < 15 (0-50); LDL Cholesterol Calculated 117 mg/dL (<100); Potassium 4.4 mmol/L (3.4-5.1); Sodium 139 mmol/L (137-145); Triglycerides 79 mg/dL (35-150)
[2024-03-08 13:04] LABS: TSH w/ Reflex to FT4 1.01 uIU/mL (0.47-4.68)
[2024-03-08 16:36] LABS: Creatinine Urine Random 13.7 mg/dL
[2024-03-08 16:42] LABS: Microalbumin Urine Random < 0.6 mg/dL (0-1.6)
[2024-03-08 16:52] LABS: Vitamin D 25 Hydroxy (D3) 67.5 ng/mL (30.0-100.0)
== END ==
PROVIDERS: Family Provider Family Medicine; PCP Family Medicine; Referring Provider Physician Assistant; Visit Provider Physician Assistant
DX: I10 Essential (primary) hypertension (principal); M81.0 Age-related osteoporosis without current pathological fracture; J44.9 Chronic obstructive pulmonary disease, unspecified; E78.5 Hyperlipidemia, unspecified; F17.210 Nicotine dependence, cigarettes, uncomplicated; K21.9 Gastro-esophageal reflux disease without esophagitis
CPT/HCPCS: 36415; 80053; 80061; 82043; 82306; 82570; 84443; 85025

== ENCOUNTER → 2024-08-26 07:48 | Outpatient (CLI) | payer MEDICARE, SELFPAY ==
[2024-08-26 09:14] LABS: BUN Creatinine Ratio 15.6 (6-22); Blood Urea Nitrogen 12 mg/dL (7-17); Calcium 9.7 mg/dL (8.4-10.2); Carbon Dioxide 30 mmol/L (22-32); Chloride 104 mmol/L (98-107); Estimated Glomerular Filt Rate > 60 mL/min (>60); Glucose 90 mg/dL (80-110); HEMOLYSIS < 15 (0-50); Potassium 4.5 mmol/L (3.4-5.1); Sodium 137 mmol/L (137-145)
[2024-08-26 09:21] LABS: Vitamin D 25 Hydroxy (D3) 77.3 ng/mL (30.0-100.0)
== END ==
PROVIDERS: Family Provider Family Medicine; PCP Family Medicine; Referring Provider Internal Medicine Rheumatology; Visit Provider Internal Medicine Rheumatology
DX: M81.8 Other osteoporosis without current pathological fracture (principal)
CPT/HCPCS: 36415; 80048; 82306

== ENCOUNTER → 2024-09-02 09:45 | Outpatient (CLI) | payer MEDICARE, SELFPAY ==
--- NOTE | 2024-09-02 09:46 | DI.US.S_ITS ---
PROCEDURE: US THYROID INDICATIONS: thyroid nodule TECHNIQUE: Real-time scanning was performed of the thyroid gland, with image documentation. COMPARISON: [facility], US, US THYROID, 09/06/2023, 11:19. FINDINGS: Thyroid: Right lobe measures 4.5 x 1.2 x 1.2 cm. Left lobe measures 4.6 x 1.5 x 1.5 cm. Isthmus is 0.2 cm thick. Echotexture is homogeneous. Nodule number: 1 Location: Left superior Size: 1.5 x 0.6 x 0.8 cm, previously 1.6 x 0.7 x 1.0 cm. Composition: Solid Echogenicity: Hypoechoic Shape: wider than tall. Margins: Ill-defined Echogenic foci: Macro calcification Total points: 5 ACR TI-RADS category: 4 Nodule number: 2 Location: Left inferior Size: 0.9 x 0.4 x 0.6 cm, previously 1.0 x 0.5 by 0.9 cm. Composition: Predominantly solid Echogenicity: Hypoechoic Shape: wider than tall. Margins: Ill-defined Echogenic foci: Macro calcification Total points: 4 ACR TI-RADS category: 4 Nodule number: 3 Location: Right mid Size: 0.9 by 0.5 x 0.7 cm, previously 1.1 x 0.6 x 0.8 cm. Composition: Solid Echogenicity: Hypoechoic Shape: wider than tall. Margins: Smooth Echogenic foci: Punctate Total points: 7 ACR TI-RADS category: 5 IMPRESSION: Stable thyroid nodules ACR TI-RADS definitions and recommendations: TI-RADS 1 (benign): 0 points. FNA not needed. TI-RADS 2 (not suspicious): 2 points. FNA not needed. TI-RADS 3: 3 points. * FNA if 2.5 cm or larger, follow up if 1.5 cm or larger (at 1, 3, and 5 years). TI-RADS 4: 4-6 points. * FNA if 1.5 cm or larger, follow up if 1 cm or larger (at 1, 2, 3, and 5 years). TI-RADS 5: 7 points or more. * FNA if 1 cm or larger, follow up if 0.5 cm or larger (every year for 5 years). 1. Dictated by: Danny Awad M.D. on 09/03/2024 at 17:46 Approved by: Danny Awad M.D. on 09/03/2024 at 17:49
--- NOTE | 2024-09-02 09:49 | DI.CT.S_ITS ---
PROCEDURE: CT LUNG LOW DOSE SCREENING INDICATIONS: smoking history TECHNIQUE: Noncontrast 2.0-2.5 mm thick sections acquired from the pulmonary apices to the posterior costophrenic angles. 7 mm thick axial MIP, and 5 mm coronal and sagittal reformats were then acquired. For radiation dose reduction, the following was used: automated exposure control, adjustment of mA and/or kV according to patient size. COMPARISON: [facility], CT, CT LUNG LOW DOSE SCREENING, 08/22/2023, 9:35. FINDINGS: Image quality: Diagnostic. Lower Neck: No enlarged lymph nodes. Thyroid: No thyroid nodules which require sonographic follow up, per consensus guidelines. Axillae: No enlarged lymph nodes. Chest Wall: Unremarkable. Bones: No aggressive appearing bony lesions. Lungs and Pleura: No pneumothorax or pleural effusions. Intra fissural lymph node is again seen within right minor fissure unchanged from prior study series 3 image 119. No consolidation or suspicious nodules. Heart: Heart size is normal. No pericardial effusion. Thoracic Vessels: The aorta and pulmonary arteries demonstrate normal size. Mediastinum and Rhonda: No enlarged lymph nodes. Esophagus: No wall thickening. Small hiatal hernia. Upper Abdomen: Visualized upper abdomen solid organs and bowel loops appear normal. Tiny nonobstructing bilateral renal calculi are seen. No hydronephrosis. IMPRESSION: No suspicious pulmonary nodules. Stable intra fissural lymph no in right minor fissure. LUNG-RADS 2; continued annual screening, if eligible. Clinically Significant Non-pulmonary Findings: Tiny bilateral nonobstructing renal calculi. No hydronephrosis. Dictated by: Daquan Quinn M.D. on 09/02/2024 at 15:49 Approved by: Daquan Quinn M.D. on 09/02/2024 at 16:02
== END ==
PROVIDERS: Family Provider Family Medicine; PCP Family Medicine; Referring Provider Family Medicine; Visit Provider Family Medicine
DX: F17.210 Nicotine dependence, cigarettes, uncomplicated (principal); Z12.2 Encounter for screening for malignant neoplasm of respiratory organs; E04.2 Nontoxic multinodular goiter
CPT/HCPCS: 71271; 76536

== ENCOUNTER 2024-09-10 09:10 | Inpatient (IN) | payer MEDICARE, SELFPAY ==
[2024-09-09] VITALS (15 sets, daily range): BP systolic 106–139; BP diastolic 42–91; PULSE 73–110; RESP 16–20; TEMP 36.2–37.4; O2SAT 88–100; BMI 25.4
--- NOTE | 2024-09-09 | DI.RAD.S_ITS ---
PROCEDURE: XR CHEST 1V INDICATIONS: soa TECHNIQUE: One view of the chest was acquired. COMPARISON: [facility], CT, CT LUNG LOW DOSE SCREENING, 08/22/2023, 9:35. FINDINGS: Surgical changes and devices: None. Lungs and pleura: Patchy opacity in the left lung base.. No pleural effusions or pneumothorax. Mediastinum: Mediastinal contours appear normal. Heart size is normal. Bones and chest wall: No suspicious bony lesions. S shaped scoliosis of the thoracolumbar spine. Overlying soft tissues appear unremarkable. IMPRESSION: Left basilar pneumonia. Dictated by: Sobia Durbin MD, PhD on 09/09/2024 at 11:01 Approved by: Sobia Durbin MD, PhD on 09/09/2024 at 11:12
--- NOTE | 2024-09-09 09:24 | PM.HP.1 ---
History of Present Illness History of Present Illness Date Patient Seen: 09/09/24 Time Patient Seen: 09:24 Chief complaint: Colonoscopy Narrative: 69-year-old woman personal history of colonic polyps here for screening colonoscopy. Mother has a history of colon cancer. No abdominal concerns today. Last colonoscopy 5 years ago. [facility] Medical History (Updated 09/09/24 @ 09:25 by Carl Millard MD) Chronic GERD Left sciatic nerve pain Chronic left-sided thoracic back pain Smoking greater than 30 pack years Pulmonary nodule Hyperlipidemia Left wrist fracture Rosacea (~1999) Plantar warts (~1979) Actinic keratosis H/O chest x-ray (~2020) COPD (chronic obstructive pulmonary disease) History of neurological disorder (~2010) Restless leg syndrome Encounter for monitoring teriparatide therapy Scoliosis Osteoporosis (~2009) Osteopenia (~2005) Fractures Foot pain (~2020) Chicken pox (~1959) Narrow angle glaucoma suspect Glaucoma (~2014) Cataracts, bilateral (~2018) Diverticular disease (~2019) Colon polyps (~2008) Thyroid nodule (~2018) Pericardial effusion (~2018) Hypertension (~2019) Skin cancer (~2018) Surgical History Anesthesia History of colonoscopy History of section (~1985) Benign tumor of breast (~1970) History of tonsillectomy Status post Mohs surgery Family History (Updated 06/06/22 @ 09:49 by Salvador Olivas DO) Father History of heart disease Hypertension Hyperlipidemia Mother Diabetes mellitus History of heart disease Hypertension Mental health problem Short-term memory loss Colon cancer Sister Breast cancer Hypertension Mental health problem Lyme disease Sister Breast cancer Diabetes mellitus History of heart disease Hypertension Atrial fibrillation Sleep apnea Sister Breast cancer Grandfather Cancer Grandmother Cancer Grandfather COPD (chronic obstructive pulmonary disease) Grandmother History of heart disease Family/Other Depression Social History Smoking Status: Former smoker alcohol intake: current Meds Home Medications and Allergies Home Medications Medication Instructions Recorded Confirmed Type cholecalciferol (vitamin D3) 25 25 mcg PO DAILY 06/06/22 09/09/24 History mcg (1,000 unit) capsule ogvrewgz-wtc-qwcbn acid 0.4 1 tab PO DAILY 06/06/22 09/09/24 History mg-lycopene 300 mcg-lutein 250 mcg tablet (Complete Multivitamin Adult 50 Plus) niacinamide 500 mg tablet 500 mg PO BID 06/06/22 09/09/24 History omega 0-vlg-rai-fish oil 1,000 mg 1 cap PO DAILY 06/06/22 09/09/24 History (120 mg-180 mg) capsule (Fish Oil) calcium citrate 250 mg 4 tab PO DAILY 03/06/24 09/09/24 History calcium-vitamin D3 5 mcg (200 unit) tablet losartan 50 mg tablet 50 mg PO DAILY #90 tabs 06/06/24 09/09/24 Rx sodium,potassium,mag sulfates 17.5 See Rx Instructions PO .COMPLEX 08/28/24 Rx gram-3.13 gram-1.6 gram oral soln #354 mL (Suprep Bowel Prep Kit) Allergies Allergy/AdvReac Type Severity Reaction Status Date / Time No Known Drug Allergies Allergy Verified 09/09/24 08:25 Exam Vital Signs (past 8 hours): - 09/09/24 08:33 Temperature 97.9 F Pulse Rate 79 Respiratory Rate 17 Blood Pressure 139/77 Pulse Oximetry 100 Oxygen Delivery Method Room Air Oxygen Delivery Method Room Air Narrative Exam Narrative: General adult woman alert oriented no acute distress Chest nonlabored respiration Extremities warm well perfused Assessment & Plan Assessment and plan (1) Personal history of colonic polyps: Status: Acute (2) Family history of colon cancer: Status: Acute Assessment & Plan narrative: The patient requires colorectal screening and colonoscopy is recommended. Technical details were discussed. Risks, benefits, alternatives explained. Risks including but not limited to myocardial infarction, aspiration, bleeding, pain, missed lesion, incomplete examination, need for further radiographic studies, intestinal injury, and need for major abdominal surgery were discussed. All questions were answered to their satisfaction, and they are in agreement with this plan. Time-Based Coding :: [TOTAL MINUTES] spent with patient and on the chart (including review of chart, obtaining history, exam, reviewing outside data, placing orders, documenting exam and treatment plan, and counseling patient) on [DATE].
--- NOTE | 2024-09-09 09:25 | P.OP.COLON_ITS ---
Operative Date/Time/Diagnoses Date of procedure: 09/09/24 Time of procedure: 09:25 Pre-op diagnosis: Personal history of colonic polyps Family history of colon cancer in first-degree relative Procedure & Clinicians Study performed: Screening colonoscopy Same procedure as scheduled: Yes Indications: Family history of colon cancer in first-degree relative Personal history of colonic polyps Surgeon: Carl Millard Procedure Notes Procedure in detail: The history and physical was performed/updated and the patient is ASA class is 2. The procedure was discussed in detail with the patient. Potential risks complications including infection, bleeding, missed diagnosis, perforation, need for surgery, and were explained. Their questions were answered and informed consent was obtained. Patient was brought to the procedure room and placed standard monitoring equipment. The patient's vital signs were monitored continuously throughout the entire procedure. Prior to starting time-out was performed. The patient was placed in the left lateral recumbent position. Procedural sedation was administered by anesthesia. Examination began with a thorough inspection of the perianal area there was no evidence of fissures, fistulae, external hemorrhoids or cutaneous malignancy. The colonoscopy scope was then placed into the anal canal and was advanced to the cecum, which was identified by the ileocecal valve, the appendiceal orifice and the confluence of the taenia. The scope was then slowly withdrawn examining colon thoroughly in all directions, irrigating it of any residual stool. The scope was retroflexed within the rectum The patient tolerated the procedure well. They will be discharged once criteria are met. The prep was of good/excellent quality. The withdrawl time was 6 minutes. FINDINGS * Unremarkable colonoscopy. Normal healthy colonic mucosa without mass or polyps. * Internal hemorrhoids Specimen(s): none sent Impression: Hemorrhoids Post-procedure Recommendations: Colonoscopy in 5 years Disposition: same day surgery
[2024-09-09] MEDS: ALBUTEROL 2.5 MG/3 ML NEB (ADULT) INH (10:15)
--- NOTE | 2024-09-09 10:56 | SUR.PHASEI ---
1045 pt c/o soa, 87% on 2lnc, lung sounds fine crackles lll, GEAR CHANGER notified, order for pcxr obtained, pt reports improvement in soa after simple mask applied at 8L, persistent wet cough, placed on continuous spo2 93% after intervention
--- NOTE | 2024-09-09 12:26 | PM.CN ---
History of Present Illness Consult details Date Patient Seen: 09/09/24 Time Patient Seen: 15:24 Chief complaint: Colonoscopy Narrative: The patient is a 69-year-old female who underwent a screening colonoscopy today and then developed symptoms consistent with aspiration with acute coughing, dyspnea, hypoxemia, and a left lower lobe infiltrate on x-ray. She required 7 L of oxygen in the PACU but is able to turn down to 3 L by the time she came up to the floor. She was a history of colonic polyps but denies any symptoms leading into her colonoscopy. Specifically, no recent URI symptoms, cough, fevers, or chills. No orthopnea, or leg swelling. She does have a history of smoking and quit in 2001 and has self described mild COPD. She also does get wheezy occasionally if she has a cold. She was now coughing up a lot of mucus and has a discomfort in the left lateral aspect of her chest which correlates to her infiltrate. There is no hemoptysis. Meds Home Medications and Allergies Home Medications Medication Instructions Recorded Confirmed Type cholecalciferol (vitamin D3) 25 25 mcg PO DAILY 06/06/22 09/09/24 History mcg (1,000 unit) capsule ysiingjp-xzf-ujhqh acid 0.4 1 tab PO DAILY 06/06/22 09/09/24 History mg-lycopene 300 mcg-lutein 250 mcg tablet (Complete Multivitamin Adult 50 Plus) niacinamide 500 mg tablet 500 mg PO BID 06/06/22 09/09/24 History omega 7-evy-ewm-fish oil 1,000 mg 1 cap PO DAILY 06/06/22 09/09/24 History (120 mg-180 mg) capsule (Fish Oil) calcium citrate 250 mg 4 tab PO DAILY 03/06/24 09/09/24 History calcium-vitamin D3 5 mcg (200 unit) tablet losartan 50 mg tablet 50 mg PO DAILY #90 tabs 06/06/24 09/09/24 Rx Allergies Allergy/AdvReac Type Severity Reaction Status Date / Time No Known Drug Allergies Allergy Verified 09/09/24 08:25 Review of Systems Review of Systems Narrative: All else reviewed and otherwise unremarkable except as noted in the history and physical. Exam Vital Signs (past 8 hours): - 09/09/24 08:33 09/09/24 09:59 09/09/24 10:04 Temperature 97.9 F 97.5 F L Pulse Rate 79 89 82 Respiratory Rate 17 20 19 Blood Pressure 139/77 106/71 127/64 Pulse Oximetry 100 93 96 Oxygen Delivery Method Room Air Simple Mask Simple Mask Oxygen Flow Rate 15 12 09/09/24 10:08 09/09/24 10:13 09/09/24 10:22 Temperature 97.7 F Pulse Rate 73 74 103 H Respiratory Rate 19 20 16 Blood Pressure 135/62 118/59 L 119/55 L Pulse Oximetry 88 L 96 92 Oxygen Delivery Method Simple Mask T-Piece Room Air Oxygen Flow Rate 15 10 09/09/24 10:55 Temperature 97.3 F L Pulse Rate 75 Respiratory Rate 18 Blood Pressure 118/67 Pulse Oximetry 93 Oxygen Delivery Method Simple Mask Oxygen Flow Rate 8 Oxygen Delivery Method Simple Mask Oxygen Flow Rate 8 Narrative Exam Narrative: NAD, alert and oriented, fluent speech, calm. Intermittent coughing. Normocephalic skull, EOMI, anicteric sclera, symmetric pupils. Oropharynx unremarkable, no droop. Neck supple, midline trachea, no adenopathy. Lungs clear except for scattered rhonchi and decreased breath sounds in the left base. There is normal rate and effort. Heart regular No murmur gallop or rub. Abdomen is soft, non distended and non tender. Extremities are free of edema. Skin is free of rash or lesions. Joints are not swollen or deformed. Judgment appears to be normal. Objective Imaging Chest x-ray: Radiologist's impression: Left lower lobe infiltrate. [facility], [facility] Medical History Chronic GERD Left sciatic nerve pain Chronic left-sided thoracic back pain Smoking greater than 30 pack years Pulmonary nodule Hyperlipidemia Left wrist fracture Rosacea (~1999) Plantar warts (~1979) Actinic keratosis H/O chest x-ray (~2020) COPD (chronic obstructive pulmonary disease) History of neurological disorder (~2010) Restless leg syndrome Encounter for monitoring teriparatide therapy Scoliosis Osteoporosis (~2009) Osteopenia (~2005) Fractures Foot pain (~2020) Chicken pox (~1959) Narrow angle glaucoma suspect Glaucoma (~2014) Cataracts, bilateral (~2018) Diverticular disease (~2019) Colon polyps (~2008) Thyroid nodule (~2018) Pericardial effusion (~2018) Hypertension (~2019) Skin cancer (~2018) Surgical History Anesthesia History of colonoscopy History of section (~1985) Benign tumor of breast (~1970) History of tonsillectomy Status post Mohs surgery Family History Father History of heart disease Hypertension Hyperlipidemia Mother Diabetes mellitus History of heart disease Hypertension Mental health problem Short-term memory loss Colon cancer Sister Breast cancer Hypertension Mental health problem Lyme disease Sister Breast cancer Diabetes mellitus History of heart disease Hypertension Atrial fibrillation Sleep apnea Sister Breast cancer Grandfather Cancer Grandmother Cancer Grandfather COPD (chronic obstructive pulmonary disease) Grandmother History of heart disease Family/Other Depression Tobacco & Substance Use Smoking Status: Former smoker alcohol intake: current Assessment & Plan Assessment & Plan narrative: Aspiration event, present on admission and active. Possible aspiration pneumonia, present on admission active. Acute hypoxic respiratory failure, present on admission and active. Mild COPD, present on admission and active. Restless legs, present on admission and stable. Colonic polyps, present on admission and stable. HLD, present on admission and stable. GERD, present on admission and stable. Plan: -empiric antibiotics with Unasyn, monitor symptoms and degree of hypoxemia. -wean O2 as able. -albuterol nebs as needed. Routine medications will be continued without change. Observation status, anticipate 1 night of hospital services. CHAPIS is September 10 if she continues to improve. Full code. Proxy decision maker is her , they live in [place]. I met with the patient and her today. Time-Based Coding :: 35 min spent with patient and on the chart (including review of chart, obtaining history, exam, reviewing outside data, placing orders, documenting exam and treatment plan, and counseling patient) on 09/09.
[2024-09-09] MEDS: HEPARIN 5,000 UNIT/ML VIAL 5000 UNIT SUBCUT ×2 (13:33→21:57)
[2024-09-09] MEDS: PANTOPRAZOLE DR 20 MG TABLET PO (13:33)
[2024-09-09] MEDS: BENZOCAINE/MENTHOL 1 LOZ PKT 1 EACH PO (15:55)
[2024-09-09] MEDS: LOSARTAN 50 MG TABLET PO (22:33)
[2024-09-09] MEDS: levoFLOXacin 750 MG/150 ML PIGGYBACK 100 MG IV (23:45)
[2024-09-10] VITALS (11 sets, daily range): BP systolic 100–118; BP diastolic 35–58; PULSE 80–94; RESP 12–22; TEMP 36.4–37.1; O2SAT 92–97
[2024-09-10] MEDS: PANTOPRAZOLE DR 20 MG TABLET PO (05:15)
[2024-09-10 05:40] LABS: Add Manual Diff / Slide Review NO; Basophils Absolute Auto 100 /uL (0-100); Basophils Percent Auto 0.4 % (0-2); Eosinophils Absolute Auto 0 /uL (0-450); Eosinophils Percent Auto 0.2 % (2-4); Hemoglobin 13.1 g/dL (12.0-16.0); Lymphocytes Absolute Auto 1700 /uL (1100-4500); Mean Corpuscular HGB Conc 34.4 % (30-36); Mean Corpuscular Hemoglobin 32.7 PG (26-34); Mean Corpuscular Volume 95.2 fL (80-100); Monocytes Absolute Auto 800 /uL (0-900); Monocytes Percent Auto 6.1 % (3-14); Neutrophils Absolute Auto 10500 /uL (1500-7000); Neutrophils Percent Auto 80.3 % (50-75); Platelet Count 221 X10^3/uL (150-400); Red Cell Distribution Width 12.9 % (11.6-14.8); White Blood Cell Count 13.1 X10^3/uL (4.5-11.0)
[2024-09-10 05:43] LABS: BUN Creatinine Ratio 15.9 (6-22); Blood Urea Nitrogen 10 mg/dL (7-17); Calcium 8.7 mg/dL (8.4-10.2); Carbon Dioxide 23 mmol/L (22-32); Chloride 104 mmol/L (98-107); Estimated Glomerular Filt Rate > 60 mL/min (>60); Glucose 114 mg/dL (80-110); HEMOLYSIS < 15 (0-50); Potassium 3.8 mmol/L (3.4-5.1); Sodium 131 mmol/L (137-145)
[2024-09-10] MEDS: HEPARIN 5,000 UNIT/ML VIAL 5000 UNIT SUBCUT ×2 (09:01→21:34)
--- NOTE | 2024-09-10 09:03 | P.PN_ITS ---
Subjective Subjective Interval history: Subjective: She feels little bit better today, still short of breath and desaturates with walking. She was still coughing, but less so. Exam Vital Signs (past 8 hours): - 09/10/24 04:00 09/10/24 04:20 09/10/24 07:30 Temperature 98.1 F 97.5 F L Pulse Rate 89 80 Respiratory Rate 12 17 Blood Pressure 107/41 L 112/47 L 115/58 L Pulse Oximetry 93 96 Oxygen Flow Rate 4 Oxygen Delivery Method Nasal Cannula Oxygen Flow Rate 4 Narrative Exam Narrative: NAD, alert and oriented. Fluent speech. Lungs are clear except with prolonged expiratory phase and left base crackles, normal rate and effort. Heart is regular, no murmur gallop or rub. Abdomen is soft, non distended. Extremities are free of edema. Objective Labs 09/10/24 05:10 09/10/24 05:10 Labs: Laboratory Results - last 24 hr 09/10/24 05:10 WBC 13.1 H RBC 4.00 Hgb 13.1 Hct 38.0 MCV 95.2 MCH 32.7 MCHC 34.4 RDW 12.9 Plt Count 221 Neut % (Auto) 80.3 H Lymph % (Auto) 13.0 L [place] % (Auto) 6.1 Eos % (Auto) 0.2 L Baso % (Auto) 0.4 Neut # (Auto) 01072 H Lymph # (Auto) 1700 [place] # (Auto) 800 Eos # (Auto) 0 Baso # (Auto) 100 Sodium 131 L Potassium 3.8 Chloride 104 Carbon Dioxide 23 BUN 10 Creatinine 0.63 Estimated GFR > 60 BUN/Creatinine Ratio 15.9 Glucose 114 H Calcium 8.7 PFSH Medical History Chronic GERD Left sciatic nerve pain Chronic left-sided thoracic back pain Smoking greater than 30 pack years Pulmonary nodule Hyperlipidemia Left wrist fracture Rosacea (~1999) Plantar warts (~1979) Actinic keratosis H/O chest x-ray (~2020) COPD (chronic obstructive pulmonary disease) History of neurological disorder (~2010) Restless leg syndrome Encounter for monitoring teriparatide therapy Scoliosis Osteoporosis (~2009) Osteopenia (~2005) Fractures Foot pain (~2020) Chicken pox (~1959) Narrow angle glaucoma suspect Glaucoma (~2015) Cataracts, bilateral (~2019) Diverticular disease (~2020) Colon polyps (~2009) Thyroid nodule (~2019) Pericardial effusion (~2019) Hypertension (~2020) Skin cancer (~2019) Surgical History Anesthesia History of colonoscopy History of section (~1985) Benign tumor of breast (~1970) History of tonsillectomy Status post Mohs surgery Family History Father History of heart disease Hypertension Hyperlipidemia Mother Diabetes mellitus History of heart disease Hypertension Mental health problem Short-term memory loss Colon cancer Sister Breast cancer Hypertension Mental health problem Lyme disease Sister Breast cancer Diabetes mellitus History of heart disease Hypertension Atrial fibrillation Sleep apnea Sister Breast cancer Grandfather Cancer Grandmother Cancer Grandfather COPD (chronic obstructive pulmonary disease) Grandmother History of heart disease Family/Other Depression Social History household members: significant other Smoking Status: Former smoker alcohol intake: current Assessment & Plan Assessment & Plan narrative: 1. Aspiration event, present on admission and active. 2. Possible aspiration pneumonia, present on admission active. 3. Acute hypoxic respiratory failure, present on admission and active. 4. Mild COPD with exacerbation, present on admission and active. 5. Restless legs, present on admission and stable. 6. Colonic polyps, present on admission and stable. 7. HLD, present on admission and stable. 8. GERD, present on admission and stable. Plan: -continue antibiotics -add prednisone 20 mg and DuoNebs q.4 hours scheduled while awake -wean O2 as able. -albuterol nebs as needed. Routine medications will be continued without change. She requires a 2nd midnight of care for persistent hypoxemia and antibiotics, supports inpatient status. CHAPIS is September 11 Time-Based Coding :: [TOTAL MINUTES] spent with patient and on the chart (including review of chart, obtaining history, exam, reviewing outside data, placing orders, documenting exam and treatment plan, and counseling patient) on [DATE].
[2024-09-10] MEDS: predniSONE 20 MG TABLET PO (09:11)
[2024-09-10] MEDS: BENZOCAINE/MENTHOL 1 LOZ PKT 1 EACH PO ×2 (09:11→14:26)
--- NOTE | 2024-09-10 12:10 | PM.PN.1 ---
Subjective Subjective Date Patient Seen: 09/10/24 Time Patient Seen: 12:10 Interval history: Aspiration pneumonia following colonoscopy. Continuing oxygen requirement and pleurisy but reports slight improvement from yesterday Exam Vital Signs (past 8 hours): - 09/10/24 04:20 09/10/24 07:30 09/10/24 09:11 Temperature 97.5 F L Pulse Rate 80 Respiratory Rate 17 Blood Pressure 112/47 L 115/58 L Pulse Oximetry 96 93 Oxygen Delivery Method Nasal Cannula Oxygen Flow Rate 4 09/10/24 10:00 09/10/24 11:00 Temperature 97.6 F Pulse Rate 81 Respiratory Rate 17 Blood Pressure 118/48 L Pulse Oximetry 97 Oxygen Delivery Method Nasal Cannula Oxygen Flow Rate Oxygen Delivery Method Nasal Cannula Oxygen Flow Rate 4 Narrative Exam Narrative: General adult woman alert oriented no acute distress Chest mildly labored respirations on 4 L of oxygen nasal cannula Objective Labs 09/10/24 05:10 09/10/24 05:10 Labs: Laboratory Results - last 24 hr 09/10/24 05:10 WBC 13.1 H RBC 4.00 Hgb 13.1 Hct 38.0 MCV 95.2 MCH 32.7 MCHC 34.4 RDW 12.9 Plt Count 221 Neut % (Auto) 80.3 H Lymph % (Auto) 13.0 L [place] % (Auto) 6.1 Eos % (Auto) 0.2 L Baso % (Auto) 0.4 Neut # (Auto) 12909 H Lymph # (Auto) 1700 [place] # (Auto) 800 Eos # (Auto) 0 Baso # (Auto) 100 Sodium 131 L Potassium 3.8 Chloride 104 Carbon Dioxide 23 BUN 10 Creatinine 0.63 Estimated GFR > 60 BUN/Creatinine Ratio 15.9 Glucose 114 H Calcium 8.7 PFSH Medical History Chronic GERD Left sciatic nerve pain Chronic left-sided thoracic back pain Smoking greater than 30 pack years Pulmonary nodule Hyperlipidemia Left wrist fracture Rosacea (~1999) Plantar warts (~1979) Actinic keratosis H/O chest x-ray (~2020) COPD (chronic obstructive pulmonary disease) History of neurological disorder (~2010) Restless leg syndrome Encounter for monitoring teriparatide therapy Scoliosis Osteoporosis (~2009) Osteopenia (~2005) Fractures Foot pain (~2020) Chicken pox (~1960) Narrow angle glaucoma suspect Glaucoma (~2015) Cataracts, bilateral (~2019) Diverticular disease (~2020) Colon polyps (~2009) Thyroid nodule (~2019) Pericardial effusion (~2019) Hypertension (~2020) Skin cancer (~2019) Surgical History Anesthesia History of colonoscopy History of section (~1985) Benign tumor of breast (~1970) History of tonsillectomy Status post Mohs surgery Family History Father History of heart disease Hypertension Hyperlipidemia Mother Diabetes mellitus History of heart disease Hypertension Mental health problem Short-term memory loss Colon cancer Sister Breast cancer Hypertension Mental health problem Lyme disease Sister Breast cancer Diabetes mellitus History of heart disease Hypertension Atrial fibrillation Sleep apnea Sister Breast cancer Grandfather Cancer Grandmother Cancer Grandfather COPD (chronic obstructive pulmonary disease) Grandmother History of heart disease Family/Other Depression Social History household members: significant other Smoking Status: Former smoker alcohol intake: current Assessment & Plan Assessment and plan (1) Aspiration of blood with respiratory symptoms: Status: Acute Assessment & Plan narrative: 69-year-old woman history of COPD with aspiration pneumonia. Appreciative of medical service for their support. -wean O2 as able -antibiotics for presumed aspiration pneumonia -Incentive spirometry Time-Based Coding :: [TOTAL MINUTES] spent with patient and on the chart (including review of chart, obtaining history, exam, reviewing outside data, placing orders, documenting exam and treatment plan, and counseling patient) on [DATE].
[2024-09-10] MEDS: ALBUTEROL/IPRATROPIUM 3 ML AMPUL INH ×2 (13:50→17:54)
[2024-09-11] VITALS (10 sets, daily range): BP systolic 104–124; BP diastolic 38–74; PULSE 78–109; RESP 16–22; TEMP 36.6–37.2; O2SAT 93–98
[2024-09-11] MEDS: levoFLOXacin 750 MG/150 ML PIGGYBACK 100 MG IV (00:07)
[2024-09-11] MEDS: PANTOPRAZOLE DR 20 MG TABLET PO (06:32)
[2024-09-11 06:44] LABS: Add Manual Diff / Slide Review NO; Basophils Absolute Auto 0 /uL (0-100); Basophils Percent Auto 0.4 % (0-2); Eosinophils Absolute Auto 0 /uL (0-450); Eosinophils Percent Auto 0.2 % (2-4); Hematocrit 35.5 % (36-46); Hemoglobin 12.1 g/dL (12.0-16.0); Lymphocytes Absolute Auto 1700 /uL (1100-4500); Lymphocytes Percent Auto 13.4 % (25-40); Mean Corpuscular Hemoglobin 32.2 PG (26-34); Mean Corpuscular Volume 94.7 fL (80-100); Monocytes Absolute Auto 900 /uL (0-900); Monocytes Percent Auto 7.6 % (3-14); Neutrophils Absolute Auto 9700 /uL (1500-7000); Neutrophils Percent Auto 78.4 % (50-75); Platelet Count 231 X10^3/uL (150-400); Red Blood Cell Count 3.75 X10^6/uL (4.0-5.2); Red Cell Distribution Width 12.9 % (11.6-14.8); White Blood Cell Count 12.4 X10^3/uL (4.5-11.0)
[2024-09-11 07:02] LABS: BUN Creatinine Ratio 16.1 (6-22); Blood Urea Nitrogen 10 mg/dL (7-17); Calcium 8.8 mg/dL (8.4-10.2); Carbon Dioxide 25 mmol/L (22-32); Chloride 106 mmol/L (98-107); Estimated Glomerular Filt Rate > 60 mL/min (>60); Glucose 102 mg/dL (80-110); HEMOLYSIS < 15 (0-50); Potassium 3.5 mmol/L (3.4-5.1); Sodium 135 mmol/L (137-145)
[2024-09-11] MEDS: ALBUTEROL/IPRATROPIUM 3 ML AMPUL INH ×3 (07:40→15:28)
[2024-09-11] MEDS: HEPARIN 5,000 UNIT/ML VIAL 5000 UNIT SUBCUT ×2 (09:14→21:25)
[2024-09-11] MEDS: BENZOCAINE/MENTHOL 1 LOZ PKT 1 EACH PO (09:14)
[2024-09-11] MEDS: ACETAMINOPHEN 325 MG TABLET 650 MG PO (09:14)
--- NOTE | 2024-09-11 09:22 | P.PN_ITS ---
Subjective Subjective Interval history: Summary: 69-year-old female admitted for acute aspiration and hypoxic respiratory failure after colonoscopy. She was mild COPD. She was improving but still is on 2 L of oxygen today. Subjective: Ongoing cough, somewhat improved. Intermittently productive. No chest pain. She was comfortable. Exam Vital Signs (past 8 hours): - 09/11/24 04:00 09/11/24 07:42 09/11/24 08:00 Temperature 97.9 F 97.9 F Pulse Rate 78 82 90 Respiratory Rate 16 20 16 Blood Pressure 120/74 104/38 L Pulse Oximetry 97 93 93 Oxygen Delivery Method Nasal Cannula Oxygen Flow Rate 2 2 2 Oxygen Delivery Method Nasal Cannula Oxygen Flow Rate 2 Narrative Exam Narrative: NAD, on 2 L of oxygen. Lungs with mildly diminished breath sounds, scattered rhonchi, and minimal wheezing. Heart is regular, no murmur. Abdomen is non distended. There is no leg edema. Objective Labs 09/11/24 05:20 09/11/24 05:20 Labs: Laboratory Results - last 24 hr 09/11/24 05:20 WBC 12.4 H RBC 3.75 L Hgb 12.1 Hct 35.5 L MCV 94.7 MCH 32.2 MCHC 34.0 RDW 12.9 Plt Count 231 Neut % (Auto) 78.4 H Lymph % (Auto) 13.4 L [place] % (Auto) 7.6 Eos % (Auto) 0.2 L Baso % (Auto) 0.4 Neut # (Auto) 9700 H Lymph # (Auto) 1700 [place] # (Auto) 900 Eos # (Auto) 0 Baso # (Auto) 0 Sodium 135 L Potassium 3.5 Chloride 106 Carbon Dioxide 25 BUN 10 Creatinine 0.62 Estimated GFR > 60 BUN/Creatinine Ratio 16.1 Glucose 102 Calcium 8.8 [facility] Medical History Chronic GERD Left sciatic nerve pain Chronic left-sided thoracic back pain Smoking greater than 30 pack years Pulmonary nodule Hyperlipidemia Left wrist fracture Rosacea (~1999) Plantar warts (~1979) Actinic keratosis H/O chest x-ray (~2020) COPD (chronic obstructive pulmonary disease) History of neurological disorder (~2010) Restless leg syndrome Encounter for monitoring teriparatide therapy Scoliosis Osteoporosis (~2009) Osteopenia (~2005) Fractures Foot pain (~2020) Chicken pox (~1960) Narrow angle glaucoma suspect Glaucoma (~2014) Cataracts, bilateral (~2018) Diverticular disease (~2019) Colon polyps (~2008) Thyroid nodule (~2018) Pericardial effusion (~2018) Hypertension (~2019) Skin cancer (~2018) Surgical History Anesthesia History of colonoscopy History of section (~1985) Benign tumor of breast (~1970) History of tonsillectomy Status post Mohs surgery Family History Father History of heart disease Hypertension Hyperlipidemia Mother Diabetes mellitus History of heart disease Hypertension Mental health problem Short-term memory loss Colon cancer Sister Breast cancer Hypertension Mental health problem Lyme disease Sister Breast cancer Diabetes mellitus History of heart disease Hypertension Atrial fibrillation Sleep apnea Sister Breast cancer Grandfather Cancer Grandmother Cancer Grandfather COPD (chronic obstructive pulmonary disease) Grandmother History of heart disease Family/Other Depression Social History household members: significant other Smoking Status: Former smoker alcohol intake: current Assessment & Plan Assessment & Plan narrative: 1. Aspiration event, present on admission and active. 2. Possible aspiration pneumonia, present on admission and improving. 3. Acute hypoxic respiratory failure, present on admission and improving. 4. Mild COPD with exacerbation, present on admission and active. 5. Restless legs, present on admission and stable. 6. Colonic polyps, present on admission and stable. 7. HLD, present on admission and stable. 8. GERD, present on admission and stable. Plan: -continue antibiotics -added prednisone 20 mg and DuoNebs q.4 hours scheduled while awake -wean O2 as able. -albuterol nebs as needed. Routine medications will be continued without change. She requires another night of care given persistent, but improving hypoxemia. Anticipated date of discharge is September 12. Time-Based Coding :: [TOTAL MINUTES] spent with patient and on the chart (including review of chart, obtaining history, exam, reviewing outside data, placing orders, documenting exam and treatment plan, and counseling patient) on [DATE].
[2024-09-11] MEDS: POTASSIUM CHLORIDE 20 MEQ TAB PO (10:36)
[2024-09-12] MEDS: levoFLOXacin 750 MG/150 ML PIGGYBACK 100 MG IV (00:12)
[2024-09-12 04:56] VITALS: BP 109/57; PULSE 84; RESP 16; TEMP 36.4; O2SAT 93
[2024-09-12 05:53] LABS: BUN Creatinine Ratio 15.6 (6-22); Blood Urea Nitrogen 10 mg/dL (7-17); Calcium 8.9 mg/dL (8.4-10.2); Carbon Dioxide 26 mmol/L (22-32); Chloride 106 mmol/L (98-107); Estimated Glomerular Filt Rate > 60 mL/min (>60); Glucose 113 mg/dL (80-110); HEMOLYSIS < 15 (0-50); Potassium 4.1 mmol/L (3.4-5.1); Sodium 136 mmol/L (137-145)
[2024-09-12] MEDS: PANTOPRAZOLE DR 20 MG TABLET PO (06:30)
[2024-09-12 07:35] VITALS: PULSE 78; RESP 18; O2SAT 93
[2024-09-12] MEDS: ALBUTEROL/IPRATROPIUM 3 ML AMPUL INH (07:35)
[2024-09-12 08:00] VITALS: BP 105/46; PULSE 95; RESP 16; TEMP 36.5; O2SAT 92
[2024-09-12] MEDS: ACETAMINOPHEN 325 MG TABLET 650 MG PO (09:10)
--- NOTE | 2024-09-12 10:37 | CM.DANOTE ---
Brief DCP Assessment Note: Pt is a 69yo female, resident of [place], is admitted for complications post routine colonoscopy. Pt lives in a house with her spouse, Arvin. Pt's Primary Care Provider is Dr. Salvador Olivas and insurance is Medicare and [facility]. Reviewed chart and team rounds for pt's medical status and discharge needs. Per nursing staff, pt has weaned down to .5L O2 and is hopeful to discharge today. Plan: Anticipating discharge home with spouse to transport today, 09/12, or when medically cleared. CM team will follow closely for coordination of discharge plans. BO Lundberg Discharge Planning/Care Management CM Discharge Assessment Start: 09/12/24 09:36 Freq: Status: Active Protocol: Document 09/12/24 09:36 MW (Rec: 09/12/24 09:39 MW [id number]) Discharge Planning Assessment Assigned [employer] Operator VENKATESH Jeffers DPOA/Assigned Designee Name Arvin, Spouse Contact Information [phone] Advance Directives? Yes Advance Directives on File Yes History Provided By Patient,Medical Record Prior Living Arrangements House Household Members spouse Independent with ADL's Yes Is patient alert and oriented? Yes Caregiver for Another No Patient/Family Preference Home with Home Health Referrals Initiated None needed Review Status In Process Please Provide Date Initial DC 09/12/24 Assessment Was Performed Next Review Type Continued Stay Review
--- NOTE | 2024-09-12 11:57 | PM.DS.1 ---
History of Present Illness History of Present Illness Date Patient Seen: 09/12/24 Time Patient Seen: 11:40 Date of Onset of Symptoms: 09/09/24 Chief complaint: Colonoscopy Narrative: Narrative: The patient is a 69-year-old female who underwent a screening colonoscopy today and then developed symptoms consistent with aspiration with acute coughing, dyspnea, hypoxemia, and a left lower lobe infiltrate on x-ray. She required 7 L of oxygen in the PACU but is able to turn down to 3 L by the time she came up to the floor. She was a history of colonic polyps but denies any symptoms leading into her colonoscopy. Specifically, no recent URI symptoms, cough, fevers, or chills. No orthopnea, or leg swelling. She does have a history of smoking and quit in 2001 and has self described mild COPD. She also does get wheezy occasionally if she has a cold. She was now coughing up a lot of mucus and has a discomfort in the left lateral aspect of her chest which correlates to her infiltrate. There is no hemoptysis. Discharge Providers Provider Date of admission: 09/10/24 09:10 Discharge Date: 09/12/24 Primary care physician: Salvador Olivas DO Discharge provider: Jim Gavin MD Summary Hospital Course Discharge Diagnosis: 1. Aspiration event, present on admission and active. 2. Probable left basilar aspiration pneumonia, present on admission and improving. 3. Acute hypoxic respiratory failure, present on admission and resolved. 4. Mild COPD with exacerbation, present on admission and active. 5. Restless legs, present on admission and stable. 6. Colonic polyps, present on admission and stable. 7. HLD, present on admission and stable. 8. GERD, present on admission and stable. Hospital Course: The patient was admitted and treated with broad-spectrum antibiotics and frequently administered bronchodilators due to aspiration pneumonia with a resulting mild COPD exacerbation, as well as supplemental oxygen. Oxygen was weaned and discontinued prior to discharge. She is feeling significantly better and interested in discharge home. No other issues arose. Status at Discharge Cognitive/behavioral status at discharge: oriented Functional status at discharge: independent ambulation Overall status at discharge: patient is progressing back to baseline Time Spent with Patient Time spent: Less than 30 minutes Exam Vital Signs (past 8 hours): - 09/12/24 04:56 09/12/24 07:35 09/12/24 07:36 Temperature 97.6 F Pulse Rate 84 78 Respiratory Rate 16 18 Blood Pressure 109/57 L Pulse Oximetry 93 93 Oxygen Delivery Method Nasal Cannula Nasal Cannula Oxygen Flow Rate 1 09/12/24 08:00 Temperature 97.7 F Pulse Rate 95 H Respiratory Rate 16 Blood Pressure 105/46 L Pulse Oximetry 92 Oxygen Delivery Method Oxygen Flow Rate 0 Oxygen Delivery Method Nasal Cannula Oxygen Flow Rate 0 Narrative Exam Narrative: NAD, on room air. Lungs with mildly diminished breath sounds, occasional rhonchi, and no wheezing. Heart is regular, no murmur. Abdomen is non distended. There is no leg edema. Objective Imaging Chest x-ray: Radiologist's impression: Left basilar pneumonia. Labs 09/11/24 05:20 09/12/24 04:35 Labs: Laboratory Results - last 24 hr 09/12/24 04:35 Sodium 136 L Potassium 4.1 Chloride 106 Carbon Dioxide 26 BUN 10 Creatinine 0.64 Estimated GFR > 60 BUN/Creatinine Ratio 15.6 Glucose 113 H Calcium 8.9 PFSH Medical History Chronic GERD Left sciatic nerve pain Chronic left-sided thoracic back pain Smoking greater than 30 pack years Pulmonary nodule Hyperlipidemia Left wrist fracture Rosacea (~1999) Plantar warts (~1979) Actinic keratosis H/O chest x-ray (~2020) COPD (chronic obstructive pulmonary disease) History of neurological disorder (~2010) Restless leg syndrome Encounter for monitoring teriparatide therapy Scoliosis Osteoporosis (~2009) Osteopenia (~2005) Fractures Foot pain (~2020) Chicken pox (~1959) Narrow angle glaucoma suspect Glaucoma (~2014) Cataracts, bilateral (~2018) Diverticular disease (~2019) Colon polyps (~2009) Thyroid nodule (~2018) Pericardial effusion (~2018) Hypertension (~2019) Skin cancer (~2018) Surgical History Anesthesia History of colonoscopy History of section (~1985) Benign tumor of breast (~1970) History of tonsillectomy Status post Mohs surgery Family History Father History of heart disease Hypertension Hyperlipidemia Mother Diabetes mellitus History of heart disease Hypertension Mental health problem Short-term memory loss Colon cancer Sister Breast cancer Hypertension Mental health problem Lyme disease Sister Breast cancer Diabetes mellitus History of heart disease Hypertension Atrial fibrillation Sleep apnea Sister Breast cancer Grandfather Cancer Grandmother Cancer Grandfather COPD (chronic obstructive pulmonary disease) Grandmother History of heart disease Family/Other Depression Social History household members: spouse Smoking Status: Former smoker alcohol intake: current Discharge Plan Discharge Plan Patient Disposition: Home Provider Discharge Comment: Normal colonoscopy Contact your provider and/or go directly to the emergency department for worsening abdominal pain fever nausea vomiting Discharge orders & Medications Prescriptions: New levofloxacin 750 mg tablet 750 mg PO DAILY Qty: 3 0RF Continued losartan 50 mg tablet 50 mg PO DAILY Qty: 90 1RF omega [id number] oil [Fish Oil] 1,000 mg (120 mg-180 mg) capsule 1 cap PO DAILY Complete MV Adult 50 Plus 0.4 mg-300 mcg- 250 mcg tablet 1 tab PO DAILY niacinamide 500 mg tablet 500 mg PO BID cholecalciferol (vitamin D3) 25 mcg (1,000 unit) capsule 25 mcg PO DAILY calcium citrate-vitamin D3 250 mg-5 mcg (200 unit) tablet 4 tab PO DAILY Discontinued sodium,potassium,mag sulfates [Suprep Bowel Prep Kit] 17.5-3.13-1.6 gram recon soln See Rx Instructions PO .COMPLEX Qty: 354 0RF Rx Instructions: TAKE DIRECTED BY PHYSICIAN Diet/Activity/Treatments Diet: Diet as Tolerated Skin/Wound/Dressing Care Report to your healthcare provider any signs of infection, such as:: increased pain Visit Report/Discharge Packet Stand Alone Forms: Patient Portal/API Discharge Data Primary Care Provider: Salvador Olivas MIPS - Admit I confirm the patient?s Advance Care Plan is present, Code status is documented, Surrogate decision maker is in patient?s record [If Yes, STOP here]: Yes MIPS - Meds 'Current medications' to include all prescriptions, [id number] products, herbals, cannabis/cannabidiol products, and vitamin/mineral/dietary (nutritional) supplements. I have utilized all available resources to obtain, update, or review the patient?s current medications. [If Yes, STOP here]: Yes MIPS - DC The patient has a history of heart transplant or Left Ventricular Assist Device (LVAD). If yes, STOP here.: No The patient has current or prior documentation of left ventricular ejection fraction (LVEF) less than or equal to 40%, or moderate or severely depressed left ventricular systolic function.: No A. The patient was prescribed or already taking an Angiotensin-Converting Enzyme (SHANE) Inhibitor, or Angiotensin Receptor Kelsey (ARB).: Yes B. The patient was prescribed or already taking a beta-kelsey. [If Yes to Both A & B, STOP here]: No Patient not prescribed/taking SHANE or ARB, no reason given.: No Patient not prescribed/taking beta-kelsey, no reason given.: No PROFEE Charge Codes Discharge inpatient/observation: [id number]
[2024-09-12 12:00] VITALS: BP 115/50; PULSE 80; RESP 16; TEMP 36.6; O2SAT 93
== END 2024-09-12 12:25 | disposition home or self-care (01) | DRG 205 ==
LOC: ENDO 11:06 → AC 11:06
PROVIDERS: Admitting Provider Hospitalist; Family Provider Family Medicine; PCP Family Medicine; Referring Provider Surgery; Visit Provider Hospitalist
PROC: 0DJD8ZZ Inspection of Lower Intestinal Tract, Via Natural or Artificial Opening Endoscopic (ICD-10-PCS; CPT 45378; principal; 2024-09-09 09:30)
DX: J95.89 Other postprocedural complications and disorders of respiratory system, not elsewhere classified (principal); J69.8 Pneumonitis due to inhalation of other solids and liquids; J96.01 Acute respiratory failure with hypoxia; J44.1 Chronic obstructive pulmonary disease with (acute) exacerbation; K64.8 Other hemorrhoids; G25.81 Restless legs syndrome; E78.5 Hyperlipidemia, unspecified; K21.9 Gastro-esophageal reflux disease without esophagitis; I10 Essential (primary) hypertension; Z80.0 Family history of malignant neoplasm of digestive organs; Z86.0100 Personal history of colon polyps, unspecified; Z12.11 Encounter for screening for malignant neoplasm of colon; Z87.891 Personal history of nicotine dependence
CPT/HCPCS: 36415; 71045; 80048; 85025; 94640; 94762; J1644; J1956; J2704; J7613

== ENCOUNTER → 2025-01-02 08:33 | Outpatient (CLI) | payer MEDICARE, SELFPAY ==
[2024-09-09 12:35] VITALS: BMI 25.4
[2025-01-02 09:47] LABS: Blood Urea Nitrogen 17 mg/dL (7-17); Calcium 9.5 mg/dL (8.4-10.2); Carbon Dioxide 29 mmol/L (22-32); Chloride 104 mmol/L (98-107); Estimated Glomerular Filt Rate > 60 mL/min (>60); Glucose 97 mg/dL (80-110); HEMOLYSIS < 15 (0-50); Potassium 3.8 mmol/L (3.4-5.1); Sodium 140 mmol/L (137-145)
--- NOTE | 2025-01-02 15:42 | DI.MG.S_ITS ---
MM screening mammo BI: 01/02/2025. BI-RADS: 2 CLINICAL: 69-year old female for bilateral screening mammogram. Tyrer-Cuzick lifetime risk of 17.2%. Current reported family history of breast cancer: maternal grandmother, sister, second sister, third sister, maternal aunt and maternal aunt's daughter. PRIOR EXAMS 10/31/2023, 10/31/2022, 10/31/2021, 10/28/2020. MAMMOGRAPHY TECHNIQUE: 2D and 3D (tomosynthesis) digital mammographic views obtained, with additional images as needed for full coverage. Current study was also evaluated with a Computer Aided Detection (CAD) system. DENSITY C. The breasts are heterogeneously dense, which may obscure small masses. MAMMOGRAPHY FINDINGS Right: Benign-appearing post-surgical changes noted on the right. No suspicious finding with benign findings noted. Left: No suspicious mass, asymmetry, microcalcification, or other abnormality seen. IMPRESSION: Right * No evidence of malignancy with benign findings. Left * No evidence of malignancy. RECOMMENDATIONS Bilateral * Annual screening mammography. OVERALL ASSESSMENT CATEGORY BI-RADS-2: Benign. [employer] recommends annual screening mammography beginning at age 40 for women with average risk of breast cancer. ELECTRONICALLY SIGNED: Nain Nolasco M.D. on 01/03/2025 at 08:19:09 AM PT Interpreting Station ID: [id number]
== END ==
PROVIDERS: Family Provider Family Medicine; PCP Family Medicine; Referring Provider Family Medicine; Visit Provider Family Medicine
DX: Z12.31 Encounter for screening mammogram for malignant neoplasm of breast (principal); Z80.3 Family history of malignant neoplasm of breast; R92.333 Mammographic heterogeneous density, bilateral breasts; M81.8 Other osteoporosis without current pathological fracture
CPT/HCPCS: 36415; 77063; 77067; 80048

== ENCOUNTER → 2025-01-08 08:32 | Outpatient (CLI) | payer MEDICARE, SELFPAY ==
[2024-09-09 12:35] VITALS: BMI 25.4
[2025-01-08 09:14] LABS: Cholesterol 246 mg/dL (140-199); HDL Cholesterol 100 mg/dL (40-60); LDL Cholesterol Calculated 128 mg/dL (<100); Triglycerides 91 mg/dL (35-150)
== END ==
PROVIDERS: Family Provider Family Medicine; PCP Family Medicine; Referring Provider Family Medicine; Visit Provider Family Medicine
DX: E78.5 Hyperlipidemia, unspecified (principal); I10 Essential (primary) hypertension
CPT/HCPCS: 36415; 80061

== ENCOUNTER → 2025-04-08 07:57 | Outpatient (CLI) | payer MEDICARE, SELFPAY ==
[2024-09-09 12:35] VITALS: BMI 25.4
[2025-04-08 09:25] LABS: Cholesterol 212 mg/dL (140-199); HDL Cholesterol 100 mg/dL (40-60); LDL Cholesterol Calculated 99 mg/dL (<100); Triglycerides 63 mg/dL (35-150)
== END ==
PROVIDERS: Family Provider Family Medicine; PCP Family Medicine; Referring Provider Family Medicine; Visit Provider Family Medicine
DX: E78.5 Hyperlipidemia, unspecified (principal)
CPT/HCPCS: 36415; 80061

== ENCOUNTER → 2025-05-22 13:38 | Outpatient (CLI) | payer MEDICARE, SELFPAY ==
[2024-09-09 12:35] VITALS: BMI 25.4
--- NOTE | 2025-05-22 13:40 | DI.RAD.S_ITS ---
PROCEDURE: FL BARIUM SWALLOW INDICATIONS: Reflux COMPARISON: None. FINDINGS: On upright images, there is mildly distally transit of ingested barium into the stomach through the gastroesophageal junction. No definite contour abnormality, however mild narrowing is likely present measuring up to 1.1 cm in diameter by fluoroscopy. Passage of barium tablet into the stomach is within normal limits. With provocative maneuvers, a small hiatal hernia, possibly with paraesophageal component is seen. Gastroesophageal reflux is identified to the level of the mid chest. On prone motility evaluation, there is a moderate degree of intra esophageal reflux and non propulsive tertiary contractions. Moderate residual is seen in the esophagus. IMPRESSION: Small hiatal hernia, possibly with paraesophageal component. Gastroesophageal reflux to the mid chest is seen. There is mild narrowing at the gastroesophageal junction with mildly delayed transit of barium. No obstruction of barium tablet is seen. Moderate intrinsic esophageal dysmotility. There is intra esophageal reflux. Consider endoscopy to further evaluate these findings. Dictated by: David Armenta M.D. on 05/22/2025 at 14:50 Approved by: David Armenta M.D. on 05/22/2025 at 14:55
== END ==
PROVIDERS: Family Provider Family Medicine; PCP Family Medicine; Referring Provider Family Medicine; Visit Provider Radiology Diagnostic Radiology
DX: K21.9 Gastro-esophageal reflux disease without esophagitis (principal); K44.9 Diaphragmatic hernia without obstruction or gangrene; K22.4 Dyskinesia of esophagus
CPT/HCPCS: 74220

== ENCOUNTER → 2025-10-08 09:48 | Outpatient (CLI) | payer MEDICARE, SELFPAY ==
[2024-09-09 12:35] VITALS: BMI 25.4
[2025-10-08 10:13] LABS: Add Manual Diff / Slide Review NO; Hematocrit 40.9 % (36-46); Hemoglobin 13.8 g/dL (12.0-16.0); Lymphocytes Absolute Auto 2400 /uL (1100-4500); Mean Corpuscular HGB Conc 33.8 % (30-36); Mean Corpuscular Hemoglobin 31.9 PG (26-34); Mean Corpuscular Volume 94.5 fL (80-100); Platelet Count 244 X10^3/uL (150-400)
[2025-10-08 10:42] LABS: Alanine Aminotransferase 20 IU/L (<35); Albumin 4.1 g/dL (3.5-5.0); Albumin Globulin Ratio 1.4 (1.0-2.8); Alkaline Phosphatase 59 U/L (38-126); Blood Urea Nitrogen 16 mg/dL (7-17); Calcium 9.5 mg/dL (8.4-10.2); Carbon Dioxide 26 mmol/L (22-32); Chloride 108 mmol/L (98-107); Cholesterol 214 mg/dL (140-199); Estimated Glomerular Filt Rate > 60 mL/min (>60); Globulin 2.9 g/dL (1.7-4.1); Glucose 100 mg/dL (70-99); HDL Cholesterol 95 mg/dL (40-60); HEMOLYSIS < 15 (0-50); Potassium 4.3 mmol/L (3.4-5.1); Sodium 141 mmol/L (137-145); Total Protein 7.0 g/dL (6.3-8.2); Triglycerides 110 mg/dL (35-150)
== END ==
PROVIDERS: Family Provider Family Medicine; PCP Family Medicine; Referring Provider Family Medicine; Visit Provider Family Medicine
DX: I10 Essential (primary) hypertension (principal); E78.5 Hyperlipidemia, unspecified
CPT/HCPCS: 36415; 80053; 80061; 85025